=== PATIENT | male | born 1980 | race Caucasian/White ===

== ENCOUNTER → 2016-06-19 | Outpatient (CLI) | payer BC ==
[~2016-06-19] MED LIST: CPXI INJ; SNTO30 TOP; VITAMIN D PO
[2016-06-19 13:55] LABS: BASO % 0.5 %; BASO ABS # 0.03 K/uL (0-0.2); COMPLETE YES; EOS % 2.5 %; HEMATOCRIT 46.5 % (42-52); LYMPH % 43.3 %; LYMPH ABS # 2.46 K/uL (1.2-3.4); MEAN CELL VOLUME 89.3 fL (80-100); MEAN CORPUSCULAR HEMOGLOBIN 30.9 pg (25-34); MEAN CORPUSCULAR HGB CONC 34.6 g/dl (32-36); MEAN PLATELET VOLUME 10.6 fL (7.4-10.4); MONO % 8.3 %; NEUT % 45.4 %; PLATELET COUNT 206 K/uL (130-400); RED BLOOD COUNT 5.21 M/uL (4.7-6.1); WHITE BLOOD COUNT 5.68 K/uL (4.8-10.8)
[2016-06-19 14:09] LABS: ALT/SGPT 43 U/L (12-78); AST/SGOT 46 U/L (15-37); BLOOD UREA NITROGEN 16 mg/dl (7-18); BUN/CREATININE RATIO 14.6 (10-20); CALCIUM 8.7 mg/dl (8.5-10.1); CARBON DIOXIDE 31 mmol/L (21-32); CHLORIDE 103 mmol/L (98-107); GLUCOSE 91 mg/dl (70-99); POTASSIUM 4.8 mmol/L (3.5-5.1); SODIUM 140 mmol/L (136-145)
[2016-06-19 14:11] LABS: ALB/GLOB RATIO 0.9 (0.9-2); ALKALINE PHOSPHATASE 64 U/L (45-117)
[2016-06-21 19:32] LABS: VARICELLA ZOS VIR IGG 1.65 Index (>=1.10); VARICELLA ZOS VIR IGM AB <=0.90 (<=0.90)
[2016-06-21 23:36] LABS: JCV ANTIBODY POSITIVE; JCV INDEX 0.43
== END | disposition home or self-care (01) ==
LOC: C.LABBC 09:50
PROVIDERS: ATTEND Psychiatry & Neurology Neurology
DX: G35 Multiple sclerosis (principal); E55.9 Vitamin D deficiency, unspecified

== ENCOUNTER → 2016-06-25 | Outpatient (CLI) | payer BC ==
[~2016-06-25] MED LIST changes: +GADAVIST IV PRN
--- NOTE | 2016-06-25 10:49 | DIAGNOSTIC IMAGING REPORT ---
MRI OF THE BRAIN COMBO CLINICAL HISTORY: Multiple sclerosis. COMPARISON STUDY: MRI of the brain dated 01/28/2015. TECHNIQUE: MRI of the brain was performed utilizing various T1 and T2-weighted sequences in the axial, sagittal, and coronal planes. Contrast-enhanced sequences were acquired following the administration of 6 cc of Gadavist. FINDINGS: Brain parenchyma: There are patchy foci of T2 signal abnormality identified within the subcortical and periventricular white matter. This has not significant change from 01/28/2015. There is no associated abnormal enhancement on the postcontrast images. There is no hemorrhage or mass effect. There is no restricted diffusion to suggest acute ischemia. No enhancing mass lesion is identified. [place]-white matter differentiation is preserved. No extra-axial fluid collection is seen. The cerebellar tonsils are normal in configuration. The examination is performed utilizing the multiple sclerosis protocol. A small developmental venous anomaly is incidentally noted in the right posterior temporal lobe. Ventricles, sulci, and cisterns: Normal in configuration. Pituitary and sella: Unremarkable. Intracranial vasculature: Normal flow voids are maintained at the skull base. Orbits: The bony orbits are grossly intact. Orbital contents are normal in appearance. Sinuses and mastoids: Clear. Calvarium: Unremarkable. Cervical cord: Partially visualized cervical spinal cord is normal in morphology and signal intensity. IMPRESSION: 1. There are patchy foci of T2 signal abnormality identified within the subcortical and periventricular white matter. This would be consistent the reported clinical history of multiple sclerosis, and the findings have not significantly changed from 01/28/2015. No abnormal enhancement is identified on the postcontrast images. 2. There is no acute intracranial abnormality identified. Electronically signed by: Ronak Caballero M.D. 06/25/2016 10:48 AM Dictated Date/Time: 06/25/2016 10:43 AM
== END | disposition home or self-care (01) ==
LOC: C.MRIBC 09:47
PROVIDERS: ATTEND Psychiatry & Neurology Neurology
DX: G35 Multiple sclerosis (principal)